=== PATIENT | female | born 1955 | race Caucasian/White ===

== ENCOUNTER 2018-04-18 08:05 | Day surgery (SDC) | payer OTHER ==
[~2018-04-18] VITALS: Ht 167.6 cm; Wt 134.7 kg
[~2018-04-18 08:05] MED LIST: CEFAZOLIN SOD 1 GM/ ISO 50 ML PREMIX IV ONE
[2018-04-18] MEDS ORDERED: MIDAZOLAM HCL 5 MG/5 ML VIAL IVP ONE (10:50)
[2018-04-18] MEDS ORDERED: LR 1,000 ML IV.SOLN IV ONE (10:50)
[2018-04-18] MEDS ORDERED: ISOSULFAN BLUE 5 ML VIAL (LYMPHAZURIN) INJ ONE (10:50)
[2018-04-18] MEDS ORDERED: SEVOFLURANE 15 MIN GAS INH ONE (10:50)
[2018-04-18] MEDS ORDERED: NS IRRIG SOLN 1000 ML IR ONE (10:50)
[2018-04-18] MEDS ORDERED: ePHEDrine sulfate 50 MG/ML VIAL IVP ONE (10:50)
[2018-04-18] MEDS ORDERED: ONDANSETRON HCL 4 MG/2 ML VIAL IVP ONE (10:50)
[2018-04-18] MEDS ORDERED: ROCURONIUM BROMIDE 10 MG/ML (ZEMURON) IV ONE (10:50)
[2018-04-18] MEDS ORDERED: fentaNYL CITRATE 250 MCG/5 ML AMP IV ONE (10:50)
[2018-04-18] MEDS ORDERED: LR 1,000 ML IV SCH (11:39)
[2018-04-18] MEDS ORDERED: METOCLOPRAMIDE HCL 10 MG/2 ML VIAL IVP PRN (11:45)
[2018-04-18] MEDS ORDERED: MORPHINE 4 MG/ML INJ. SYRINGE IVP PRN ×3 (11:45)
[2018-04-18] MEDS ORDERED: D5/0.45 NS 1,000 ML IV SCH (12:32)
[2018-04-18] MEDS ORDERED: HYDROcodone/ACETAMIN 5-325 MG TAB (NORCO/ VICODIN) ONE (14:13)
[2018-04-18] MEDS ORDERED: HYDROmorphone 1 MG INJ. 1 MG/ML AMPUL IVP PRN (14:45)
[2018-04-18] MEDS ORDERED: HYDROcodone/ACETAMIN 5-325 MG TAB (NORCO/ VICODIN) PO PRN ×2 (14:45)
[2018-04-18 15:46] VITALS: BP_SYST 173
== END 2018-04-18 15:25 | disposition home or self-care (01) ==
LOC: SMU 08:05 → SDS 08:05 → EDSTATUS 10:30 → SDS 15:25
PROVIDERS: ATTEND Colon & Rectal Surgery
DX: C50.911 Malignant neoplasm of unspecified site of right female breast (principal); D50.9 Iron deficiency anemia, unspecified; I10 Essential (primary) hypertension; K21.9 Gastro-esophageal reflux disease without esophagitis; E78.5 Hyperlipidemia, unspecified; E03.9 Hypothyroidism, unspecified; E66.01 Morbid (severe) obesity due to excess calories; Z98.890 Other specified postprocedural states; E55.9 Vitamin D deficiency, unspecified; Z68.42 Body mass index [BMI] 45.0-49.9, adult; Z80.0 Family history of malignant neoplasm of digestive organs; Z80.8 Family history of malignant neoplasm of other organs or systems; Z79.899 Other long term (current) drug therapy
CPT/HCPCS: 19081; 19301; 38525; 78195; 88305; 88307; 88329; 88333; 88342; A9541; J0690; J2250; J2405; J3010; J7120; Q9968; 76098-TC; 88304